=== PATIENT | male | born 1975 | race Two or more races ===

== ENCOUNTER 2021-08-18 05:25 | Inpatient (IN) | payer OTHER ==
[~2021-08-18] VITALS: Ht 182.9 cm; Wt 71.7 kg
[2021-08-18 06:23] LABS: CHLORIDE 103 mEq/L (98-107)
[2021-08-18 06:27] LABS: ETHANOL BLOOD < 10 mg/dL
[2021-08-18 06:27] LABS: CLARITY URINE CLEAR (CLEAR); COLOR URINE YELLOW (YELLOW); KETONES URINE 1+ (NEGATIVE); LEUKOCYTE ESTERASE URINE NEGATIVE (NEGATIVE); NITRITE URINE NEGATIVE (NEGATIVE); OCCULT BLOOD URINE 2+ (NEGATIVE); PH URINE 5.5 (4.5-8.0); PROTEIN URINE 3+ (NEGATIVE); SPECIFIC GRAVITY URINE 1.014 (1.005-1.030); UROBILINOGEN URINE 0.2 E.U./dL (0.2-1.0)
[2021-08-18 06:31] LABS: BASOPHILS % 0.7 % (0.0-2.0); EOSINOPHILS % 1.5 % (0.0-5.0); HEMATOCRIT. 43.9 % (42.0-52.0); HEMOGLOBIN. 14.6 g/dL (14.0-18.0); LYMPHOCYTES % 27.5 % (20.0-50.0); MEAN CORPUSCULAR HEMOGLOBIN 30.3 pg (28.0-32.0); MEAN CORPUSCULAR VOLUME 91.1 fL (80.0-94.0); MEAN PLATELET VOLUME 9.4 fl (7.4-10.4); NEUTROPHILS % 62.3 % (40.0-76.0); PLATELET 73 x1000/uL (130-400); RED BLOOD CELL COUNT 4.82 mill/uL (4.7-6.1); RED CELL DISTRIBUTION WIDTH 14.6 % (11.6-14.6)
[2021-08-18 07:14] LABS: *AMPHETAMINES SCREEN URINE NEGATIVE (NEGATIVE); *BENZODIAZEPINES SCREEN URINE NEGATIVE (NEGATIVE)
[2021-08-18 07:15] LABS: *COCAINE SCREEN URINE NEGATIVE (NEGATIVE); CANNABINOID URINE SCREEN PRESUMTIVE POSITIVE (NEGATIVE); METHADONE URINE SCREEN NEGATIVE (NEGATIVE); OPIATES URINE SCREEN NEGATIVE (NEGATIVE); PHENCYCLIDINE URINE SCREEN NEGATIVE (NEGATIVE)
[2021-08-18] MEDS ORDERED: LORAZEPAM 2MG/ML CPJ IM STA (08:54)
[2021-08-18] MEDS ORDERED: LEVETIRACETAM 1000MG PREMIX 100 ML IV ONE (10:15)
[2021-08-18] MEDS ORDERED: MAGNESIUM/ALUMINUM HYDROXIDE/SIMETHICONE 30ML UDC PO PRN (13:30)
[2021-08-18] MEDS ORDERED: PIPERACILLIN/TAZOBACTAM 3.375 G in DEXTROSE 5% WATER 50 ML IV SCH (13:30)
[2021-08-18] MEDS ORDERED: LEVETIRACETAM 500 MG in SODIUM CHLORIDE 0.9% 100 ML IV SCH (13:30)
[2021-08-18] MEDS ORDERED: NA PHOS,M-B/NA PHOS,DI-BA ENEMA 118ML PR PRN (13:30)
[2021-08-18] MEDS ORDERED: HYDROCODONE/ACETAMINOPHEN 5/325MG TABLET PO PRN (13:30)
[2021-08-18] MEDS ORDERED: ONDANSETRON HCL 4MG/2ML INJ IV PRN (13:30)
[2021-08-18] MEDS ORDERED: DEXTROSE 50% WATER 50ML SYRINGE IV PRN (13:30)
[2021-08-18] MEDS ORDERED: IPRATROPIUM/ALBUTEROL 0.5-3(2.5)MG/3ML NEB NEB PRN (13:30)
[2021-08-18] MEDS ORDERED: CLONIDINE 0.1MG TABLET PO PRN (13:30)
[2021-08-18] MEDS ORDERED: ACETAMINOPHEN 650MG SUPP PR PRN (13:30)
[2021-08-18] MEDS ORDERED: DOCUSATE SODIUM 100MG CAPSULE PO PRN (13:30)
[2021-08-18] MEDS ORDERED: MORPHINE SULFATE 2 MG/ML CPJ (NOT FOR IM USE) IV PRN (13:30)
[2021-08-18] MEDS ORDERED: ACETAMINOPHEN 325MG TABLET PO PRN (13:30)
[2021-08-18] MEDS ORDERED: DIPHENHYDRAMINE 50MG/ML VIAL IV PRN (13:30)
[2021-08-18] MEDS ORDERED: LORAZEPAM 2MG/ML CPJ IV PRN (13:30)
[2021-08-18] MEDS ORDERED: NALOXONE HCL 0.4MG/ML VIAL IV PRN (14:00)
[2021-08-18] MEDS: INSULIN LISPRO 100 UNITS/ML SUBCUT SCH ×3 (14:29→19:59)
[2021-08-18] MEDS: AMLODIPINE 5MG TABLET PO SCH (14:38)
[2021-08-18] MEDS: PHENYTOIN SODIUM 100MG/2ML VIAL IV SCH ×2 (14:38→21:17)
[2021-08-18 15:04] LABS: BG BASE EXCESS 0.4 mmol/L (-2.0-2.0); BG CARBOXYHEMOGLOBIN 1.5 % (0.5-1.5); BG DEOXYHEMOGLOBIN 2.6 % (0.0-5.0); BG FRACTION INSPIRED OXYGEN 21; BG HCO3 ACT 23.5 mmol/L (22.0-26.0); BG METHEMOGLOBIN 0.3 % (0.0-1.5); BG OXYGEN SATURATION 97.4 % (92.0-98.5); BG OXYHEMOGLOBIN 95.6 % (94.0-97.0); BG PCO2 33.7 mmHg (35.0-45.0); BG PH 7.462 (7.350-7.450); BG PO2 90.6 mmHg (75.0-100.0); BG SAMPLE SITE RIGHT RADIAL; BG VENT MODE ROOM AIR
[2021-08-18] MEDS: SODIUM CHLORIDE 0.9% 1,000 ML IV SCH (15:30)
[2021-08-18] MEDS: PIPERACILLIN/TAZOBACTAM 3.375G in DEXT 5% WATER 50ML IV SCH ×2 (16:00→22:53)
[2021-08-18 17:50] LABS: CREATINE KINASE MB FRACTION 6.1 ng/mL (0.5-3.6)
[2021-08-18] MEDS: BLOOD SUGAR DIAGNOSTIC STRIP TEST SCH ×2 (19:57→19:59)
[2021-08-18] MEDS ORDERED: LEVETIRACETAM 500MG PREMIX 100 ML IV SCH (21:00)
[2021-08-18] MEDS: FAMOTIDINE 20MG TABLET PO SCH (21:17)
[2021-08-18 22:54] LABS: *BARBITURATES SCREEN URINE NEGATIVE (NEGATIVE)
[2021-08-19] MEDS: SODIUM CHLORIDE 0.9% 1,000 ML IV SCH ×2 (02:50→16:22)
[2021-08-19] MEDS: PHENYTOIN SODIUM 100MG/2ML VIAL IV SCH ×2 (06:59→16:22)
[2021-08-19] MEDS: BLOOD SUGAR DIAGNOSTIC STRIP TEST SCH ×4 (06:59→20:53)
[2021-08-19] MEDS: INSULIN LISPRO 100 UNITS/ML SUBCUT SCH ×4 (07:15→20:53)
[2021-08-19] MEDS ORDERED: HALOPERIDOL LACTATE 5MG/ML VIAL IM SCH ×3 (08:00→14:00)
[2021-08-19 08:01] LABS: BASOPHILS % 1.2 % (0.0-2.0); EOSINOPHILS % 1.8 % (0.0-5.0); HEMATOCRIT. 45.8 % (42.0-52.0); HEMOGLOBIN. 15.5 g/dL (14.0-18.0); LYMPHOCYTES % 22.2 % (20.0-50.0); MEAN CORPUSCULAR HEMOGLOBIN 30.7 pg (28.0-32.0); MEAN CORPUSCULAR VOLUME 90.9 fL (80.0-94.0); MEAN PLATELET VOLUME 10.6 fl (7.4-10.4); MONOCYTES % 8.5 % (2.0-8.0); NEUTROPHILS % 66.3 % (40.0-76.0); PLATELET 67 x1000/uL (130-400); RED BLOOD CELL COUNT 5.04 mill/uL (4.7-6.1); RED CELL DISTRIBUTION WIDTH 14.5 % (11.6-14.6)
[2021-08-19 08:17] LABS: CHLORIDE 103 mEq/L (98-107)
[2021-08-19 08:20] LABS: CREATINE KINASE MB FRACTION 6.7 ng/mL (0.5-3.6)
[2021-08-19 09:45] VITALS: BP 182/108
[2021-08-19] MEDS: AMLODIPINE 5MG TABLET PO SCH (10:20)
[2021-08-19] MEDS: LORAZEPAM 2MG/ML CPJ IV PRN ×3 (10:21→20:57)
[2021-08-19] MEDS ORDERED: LORAZEPAM 2MG/ML CPJ IV PRN ×3 (11:30→17:30)
[2021-08-19 12:00] VITALS: BP 128/100
[2021-08-19] MEDS ORDERED: POTASSIUM CHLORIDE INJ 40 MEQ in DEXT 5% WATER 250 ML IV ONE (12:45)
[2021-08-19] MEDS: LEVETIRACETAM 500MG PREMIX 100 ML IV SCH ×2 (13:04→20:53)
[2021-08-19] MEDS: KCL 20MEQ/100ML PREMIX 100 ML IV SCH ×2 (14:00→16:00)
[2021-08-19] MEDS ORDERED: PIPERACILLIN/TAZOBACTAM 3.375G in DEXT 5% WATER 50ML IV SCH (14:00)
[2021-08-19 16:00] VITALS: BP 151/89
[2021-08-19 16:15] LABS: BASOPHILS % 0.7 % (0.0-2.0); EOSINOPHILS % 1.1 % (0.0-5.0); HEMATOCRIT. 44.8 % (42.0-52.0); HEMOGLOBIN. 14.8 g/dL (14.0-18.0); LYMPHOCYTES % 14.5 % (20.0-50.0); MEAN CORPUSCULAR HEMOGLOBIN 30.5 pg (28.0-32.0); MEAN CORPUSCULAR VOLUME 91.9 fL (80.0-94.0); MONOCYTES % 10.7 % (2.0-8.0); PLATELET 59 x1000/uL (130-400); RED BLOOD CELL COUNT 4.87 mill/uL (4.7-6.1); RED CELL DISTRIBUTION WIDTH 13.9 % (11.6-14.6)
[2021-08-19 16:26] LABS: CHLORIDE 102 mEq/L (98-107)
[2021-08-19] MEDS ORDERED: LORAZEPAM 2MG/ML CPJ IV NR (16:45)
[2021-08-19] MEDS ORDERED: FOLIC ACID 1 MG, THIAMINE HCL 100 MG, MVI, ADULT NO.1 10 ML in DEXTROSE 5% WATER 1,000 ML IV ONE ×4 (17:00)
[2021-08-19] MEDS ORDERED: HALOPERIDOL LACTATE 5MG/ML VIAL IM PRN (17:30)
[2021-08-19 18:48] VITALS: BP 151/89
[2021-08-19 19:04] LABS: CREATINE KINASE MB FRACTION 8.4 ng/mL (0.5-3.6)
[2021-08-19] MEDS: FAMOTIDINE 20MG TABLET PO SCH (20:53)
[2021-08-20 15:03] LABS: HEPATITIS B SURFACE ANTIGEN NEGATIVE
[2021-08-20 15:55] LABS: PROSTRATE SPECIFIC AG TOTAL 1.24 ng/mL (0.0-4.0)
== END 2021-08-19 21:05 | disposition short-term general hospital (02) | DRG 101 ==
LOC: ER 06:16 → SUPCPDRO 13:20 → MICUSO 13:33 → 6WST 08-19 09:51
PROVIDERS: ADMIT Internal Medicine; ATTEND Internal Medicine
DX: G40.89 Other seizures (principal); F10.231 Alcohol dependence with withdrawal delirium; E87.1 Hypo-osmolality and hyponatremia; R73.9 Hyperglycemia, unspecified; S00.03XA Contusion of scalp, initial encounter; F17.210 Nicotine dependence, cigarettes, uncomplicated; I10 Essential (primary) hypertension; Z20.822 Contact with and (suspected) exposure to COVID-19; W18.39XA Other fall on same level, initial encounter; Y93.89 Activity, other specified; Y92.89 Other specified places as the place of occurrence of the external cause; Y99.8 Other external cause status
CPT/HCPCS: 36415; 36600; 74176; 76700; 80048; 80053; 80305; 80320; 81003; 82375; 82550; 82553; 82805; 82962; 83036; 84153; 84443; 84484; 85025; 86705; 86709; 86803; 87340; 87426; 93005; 93970; 99285; J1165; J1200; J1630; J1815; J1953; J2060; J2543; J3411; J3480; J3490; J7040; J7060; J7070; G0103; G0480